=== PATIENT | male | born 1995 | race Caucasian/White ===

== ENCOUNTER 2021-01-17 09:05 | Emergency (ER) | payer SELFPAY ==
--- NOTE | 2021-01-17 09:47 | EDM.PDOC ---
ED HPI GENERAL MEDICAL PROBLEM - General Chief Complaint: General Stated Complaint: SORE THROAT Time Seen by Provider: 01/17/21 09:30 Source of Information: Reports: Patient History Limitations: Reports: No Limitations - History of Present Illness INITIAL COMMENTS - FREE TEXT/NARRATIVE: Patient presents with runny nose, sore throat, headache and fatigue. He works at a local [employer] and three days ago spent the day working by someone with " bronchitis" whom was coughing a lot. He is unsure if this person was tested for covid or vaccinated. He started with a runny nose and dull headache two days ago. Today he awoke with a very sore throat, difficulty swallowing due to pain but able to swallow liquids. No change in his voice. He took an aleve and this helped the sore throat and the headache. He needs to be cleared for work. He is otherwise healthy, a smoker and did receive the Valdemar and Valdemar vaccine in November. 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 [No Known Home Meds] 01/17/21 [History] Social & Family History - Tobacco Use Tobacco Use Status *Q: Current Every Day Tobacco User Tobacco Use Within Last Twelve Months: Cigarettes - Alcohol Use Alcohol Use History: Yes Alcohol Use Frequency: Socially - Recreational Drug Use Recreational Drug Use: No Drug Use in Last 12 Months: No ED ROS GENERAL - Review of Systems Review Of Systems: See Below Constitutional: Reports: Malaise, Weakness HEENT: Reports: Rhinitis, Throat Pain, Throat Swelling Respiratory: Reports: Wheezing, Cough (chronic unchanged states "smokers") Cardiovascular: Reports: No Symptoms Endocrine: Reports: No Symptoms GI/Abdominal: Reports: No Symptoms : Reports: No Symptoms Musculoskeletal: Reports: No Symptoms Skin: Reports: No Symptoms Neurological: Reports: Headache Psychiatric: Reports: No Symptoms Hematologic/Lymphatic: Reports: No Symptoms Immunologic: Reports: No Symptoms ED EXAM, GENERAL - Physical Exam Exam: See Below Exam Limited By: No Limitations General Appearance: Alert, WD/WN, No Apparent Distress Eye Exam: Bilateral Eye: EOMI, Normal Inspection, PERRL Ears: Normal External Exam, Normal Canal, Hearing Grossly Normal, Normal TMs (scarring of the tms noted bilaterally) Nose: Normal Inspection, Normal Mucosa, No Blood Throat/Mouth: Normal Lips, Normal Teeth, Other (posterior oropharynx erythema, no exudate) Head: Atraumatic Neck: Normal Inspection, Supple, Non-Tender, Full Range of Motion. No: Lymphadenopathy (L), Lymphadenopathy (R), Thyromegaly Respiratory/Chest: No Respiratory Distress, Lungs Clear, Normal Breath Sounds, No Accessory Muscle Use, Chest Non-Tender Cardiovascular: Normal Peripheral Pulses, Regular Rate, Rhythm, No Edema, No Gallop, No Murmur GI/Abdominal: Normal Bowel Sounds, Soft, Non-Tender, No Organomegaly, No Abnormal Bruit Back Exam: Normal Inspection Neurological: Alert, Oriented, CN II-XII Intact, Normal Cognition, Normal Gait Skin Exam: Warm Lymphatic: No Adenopathy Course - Vital Signs Last Recorded V/S: Last Vital Signs Temp 36.8 C 01/17/21 09:06 Pulse 78 01/17/21 09:06 Resp 18 01/17/21 09:06 BP 129/86 01/17/21 09:06 Pulse Ox 100 01/17/21 09:06 - Orders/Labs/Meds Orders: Active Orders 24 hr Category Date Time Status CORONAVIRUS COVID-19 SENA [MOLEC] DAILY Lab 01/17/21 09:30 Ordered CULTURE STREP A CONFIRMATION [RM] Stat Lab 01/17/21 09:30 Results STREP SCRN A RAPID W CULT CONF [RM] Stat Lab 01/17/21 09:22 Ordered - Re-Assessments/Exams Free Text/Narrative Re-Assessment/Exam: 01/17/21 09:52 will check a covid and rapid strep, patient already took aleve. Nontoxic looking 01/17/21 10:35 negative for covid and strep. Given decadron 10 mg Po for the inflammation. advised to stay home if ill, return if worsening. wear a mask Departure - Departure Time of Disposition: 10:35 Disposition: Home, Self-Care 01 Clinical Impression: Viral pharyngitis - Discharge Information *PRESCRIPTION DRUG MONITORING PROGRAM REVIEWED*: Not Applicable *COPY OF PRESCRIPTION DRUG MONITORING REPORT IN PATIENT ARNULFO: Not Applicable Instructions: Pharyngitis, [id number] Referrals: Martha Rubio NP [Primary Care Provider] - Forms: ED Department Discharge, ED Return to Work/School Form Additional Instructions: testing today was negative for strep throat and covid. A culture will be done and we will contact you if any growth occurs on it. You were given a dose of steroids for the inflammation of the throat. Stick to a liquid or soft food diet. use aleve or tylenol for your pain. Stay well hydrated. If you are ill, stay home and wear a mask when around others. Sepsis Event Note (ED) - Focused Exam Vital Signs: Vital Signs Temp Pulse Resp BP Pulse Ox 01/17/21 09:06 36.8 C 78 18 129/86 100 - My Orders Last 24 Hours: My Active Orders 01/17/21 09:22 STREP SCRN A RAPID W CULT CONF [RM] Stat 01/17/21 09:30 CORONAVIRUS COVID-19 SENA [MOLEC] DAILY CULTURE STREP A CONFIRMATION [RM] Stat - Assessment/Plan Last 24 Hours: My Active Orders 01/17/21 09:22 STREP SCRN A RAPID W CULT CONF [RM] Stat 01/17/21 09:30 CORONAVIRUS COVID-19 SENA [MOLEC] DAILY CULTURE STREP A CONFIRMATION [RM] Stat
[2021-01-17] MEDS ORDERED: Dexamethasone 2 MG Tab PO ONE (10:14)
== END 2021-01-17 10:40 | disposition home or self-care (01) ==
LOC: LL.ED 09:05
DX: J02.8 Acute pharyngitis due to other specified organisms (principal); Z88.0 Allergy status to penicillin; Z72.0 Tobacco use; Z20.822 Contact with and (suspected) exposure to COVID-19
CPT/HCPCS: 87081; 87430; 87635; 99283; J8540; U0002